=== PATIENT | male | born 1935 | race Caucasian/White ===

== ENCOUNTER 2020-11-01 11:47 | Emergency (ER) | payer OTHER, MEDICARE ==
[~2020-11-01] VITALS: Ht 177.8 cm; Wt 100.0 kg
--- NOTE | 2020-11-01 12:45 | NUR ---
Pt ambulated in room, SpO2 while on room air 90-92%. At rest 93% on room air. Cardiac and Spo2 monitoring in place. PA notified.
[2020-11-01 13:18] LABS: BASOPHILS % (AUTO) 0.5 % (0-1); EOSINOPHILS % (AUTO) 0.5 % (0-6); HEMATOCRIT 39.6 % (42.0-52.0); HEMOGLOBIN 13.1 g/dl (14.0-17.9); LYMPHOCYTES # (AUTO) 0.7 X10'3 (1.1-4.8); LYMPHOCYTES % (AUTO) 15.6 % (21-51); MEAN CORPUSCULAR HEMOGLOBIN 30.1 PG (27.0-31.0); MEAN PLATELET VOLUME 8.8 FL (7.4-10.4); MONOCYTES # (AUTO) 0.4 X10'3 (0-0.9); NEUTROPHILS # (AUTO) 3.1 X10'3 (1.8-7.7); NEUTROPHILS % (AUTO) 73.4 % (42-75); PLATELET COUNT 161 X10'3 (140-440); RED BLOOD COUNT 4.35 X10'6 (4.70-6.10); RED CELL DISTRIBUTION WIDTH 13.4 % (11.5-14.5); WHITE BLOOD COUNT 4.2 X10'3 (4.5-11.0)
[2020-11-01 13:32] LABS: ALANINE AMINOTRANSFERASE 27 U/L (12-78); ALBUMIN/GLOBULIN RATIO 0.7 (1.1-1.5); ALKALINE PHOSPHATASE 58 IU/L (46-116); ANION GAP 8 (8-16); ASPARTATE AMINO TRANSFERASE 28 U/L (10-37); BILIRUBIN,TOTAL 0.3 MG/DL (0.1-1.0); BLOOD UREA NITROGEN 18 MG/DL (7-18); BUN/CREATININE RATIO 13.1 (5.4-32.0); CHLORIDE 101 MMOL/L (99-107); CREATININE 1.37 MG/DL (0.60-1.10); GLUCOSE 110 MG/DL (70-104); POTASSIUM 4.4 MMOL/L (3.5-5.1); SODIUM 136 MMOL/L (135-145); TOTAL CARBON DIOXIDE 26.7 MMOL/L (24-32); TOTAL PROTEIN 7.4 G/DL (6.4-8.2); eGFR 50 ML/MIN
[2020-11-01] MEDS ORDERED: iohexol 350MG/ML 100ml bottle IV ONE (14:16)
--- NOTE | 2020-11-01 14:34 | NUR ---
To CT with tech
--- NOTE | 2020-11-01 17:46 | NUR ---
Call to Peggy at this time to provide update. All questions and concerns addressed.
--- NOTE | 2020-11-01 18:02 | NUR ---
Pt with no respiratory distress, he has been counseled by PA on monoclonal antibody infusion and has consented, we are awaiting approval from pharmacy.
[2020-11-01] MEDS ORDERED: BAMLANIVIMAB INJECTION 700 MG in normal saline 250ml IV soln 180 ML IV ONE (18:05)
[2020-11-01] MEDS ORDERED: dexamethasone 4mg/ml inj IV ONE (18:05)
[2020-11-01] MEDS ORDERED: dexamethasone 4mg/ml inj IV SCH (18:05)
[2020-11-01 19:19] VITALS: BP 150/69
== END 2020-11-01 19:21 | disposition home or self-care (01) ==
LOC: ER 11:47
DX: U07.1 COVID-19 (principal); I10 Essential (primary) hypertension; J45.909 Unspecified asthma, uncomplicated; Z88.0 Allergy status to penicillin
CPT/HCPCS: 36415; 71045; 71275; 80053; 83880; 84484; 85025; 85610; 96374; 99285; J1100; Q9967; 93005

== ENCOUNTER 2020-11-27 11:59 | Emergency (ER) | payer OTHER, MEDICARE ==
[~2020-11-27] VITALS: Ht 162.6 cm; Wt 92.7 kg
[~2020-11-27 11:59] MED LIST: AMLO10TA PO; DEXA4TAB67 PO; FLO0.4C PO; GABA-530 PO; HCTZ25T PO; LORA-268 PO; LOSA50TA64 PO; OMEP40CA13 PO; RIVA10TA PO
[2020-11-27 12:03] VITALS: BP 136/72
[2020-11-27] MEDS ORDERED: tranexamic acid 100mg/ml inj. TP ONE (12:15)
[2020-11-27] MEDS ORDERED: LIDOcaine 4% (40 mg/ml) topical solution 50ml TP ONE (12:15)
[2020-11-27] MEDS ORDERED: CLIN-97 PO (13:20)
== END 2020-11-27 13:51 | disposition home or self-care (01) ==
LOC: ER 12:00
DX: R04.0 Epistaxis (principal); R05 Cough; I10 Essential (primary) hypertension; J45.909 Unspecified asthma, uncomplicated; Z98.890 Other specified postprocedural states; Z88.0 Allergy status to penicillin; Z79.899 Other long term (current) drug therapy
CPT/HCPCS: 30901; 99284

== ENCOUNTER 2021-01-01 19:33 | Emergency (ER) | payer OTHER, MEDICARE ==
[~2021-01-01] VITALS: Ht 162.6 cm; Wt 90.9 kg
[~2021-01-01 19:33] MED LIST changes: +CLIN-97 PO
[2021-01-01 19:51] VITALS: BP 145/93
== END 2021-01-01 21:32 | disposition home or self-care (01) ==
LOC: ER 19:34
DX: R04.0 Epistaxis (principal); I10 Essential (primary) hypertension; J45.909 Unspecified asthma, uncomplicated; Z98.890 Other specified postprocedural states; Z88.0 Allergy status to penicillin; Z79.899 Other long term (current) drug therapy
CPT/HCPCS: 30901; 99284

== ENCOUNTER 2021-01-07 12:23 | Emergency (ER) | payer OTHER, MEDICARE ==
[~2021-01-07] VITALS: Ht 160 cm; Wt 100.5 kg
[~2021-01-07 12:23] MED LIST changes: -HCTZ25T PO; +HYDR25TA5 PO
[2021-01-07 13:07] VITALS: BP 148/82
== END 2021-01-07 13:08 | disposition home or self-care (01) ==
LOC: ER 12:24
DX: R04.0 Epistaxis (principal); I10 Essential (primary) hypertension; J45.909 Unspecified asthma, uncomplicated; Z98.890 Other specified postprocedural states; Z79.2 Long term (current) use of antibiotics; Z79.899 Other long term (current) drug therapy
CPT/HCPCS: 99281; 99284

== ENCOUNTER 2021-04-13 08:50 | Emergency (ER) | payer OTHER, MEDICARE ==
[~2021-04-13] VITALS: Ht 162.6 cm; Wt 102.0 kg
[2021-04-13 09:23] LABS: BASOPHILS % (AUTO) 0.4 % (0-1); EOSINOPHILS # (AUTO) 0.2 X10'3 (0-0.9); EOSINOPHILS % (AUTO) 1.8 % (0-6); HEMATOCRIT 39.8 % (42.0-52.0); HEMOGLOBIN 13.2 g/dl (14.0-17.9); LYMPHOCYTES # (AUTO) 1.2 X10'3 (1.1-4.8); LYMPHOCYTES % (AUTO) 13.6 % (21-51); MEAN CORPUSCULAR HEMOGLOBIN 29.4 PG (27.0-31.0); MEAN CORPUSCULAR HGB CONC 33.2 g/dL (33.0-36.5); MEAN CORPUSCULAR VOLUME 88.5 FL (78-98); MEAN PLATELET VOLUME 8.5 FL (7.4-10.4); MONOCYTES # (AUTO) 0.6 X10'3 (0-0.9); MONOCYTES % (AUTO) 6.9 % (2-12); NEUTROPHILS # (AUTO) 6.9 X10'3 (1.8-7.7); NEUTROPHILS % (AUTO) 77.3 % (42-75); PLATELET COUNT 175 X10'3 (140-440); RED CELL DISTRIBUTION WIDTH 13.8 % (11.5-14.5); WHITE BLOOD COUNT 8.9 X10'3 (4.5-11.0)
[2021-04-13 09:46] LABS: ALANINE AMINOTRANSFERASE 19 U/L (12-78); ALBUMIN 3.5 G/DL (3.4-5.0); ALBUMIN/GLOBULIN RATIO 0.9 (1.1-1.5); ALKALINE PHOSPHATASE 71 IU/L (46-116); ANION GAP 9 (8-16); ASPARTATE AMINO TRANSFERASE 21 U/L (10-37); BILIRUBIN,TOTAL 0.4 MG/DL (0.1-1.0); BLOOD UREA NITROGEN 29 MG/DL (7-18); BUN/CREATININE RATIO 20.7 (5.4-32.0); CALCIUM 8.7 MG/DL (8.5-10.1); CHLORIDE 103 MMOL/L (99-107); GLUCOSE 122 MG/DL (70-104); POTASSIUM 4.2 MMOL/L (3.5-5.1); SODIUM 140 MMOL/L (135-145); TOTAL CARBON DIOXIDE 28.1 MMOL/L (24-32); TOTAL PROTEIN 7.2 G/DL (6.4-8.2); eGFR 48 ML/MIN
[2021-04-13 10:54] LABS: CLARITY,URINE CLEAR (Clear); COLOR,URINE STRAW (Yellow); GLUCOSE, URINE NEGATIVE (Neg); KETONES,URINE NEGATIVE (Neg); LEUKOCYTE ESTERASE ,URINE NEGATIVE (Neg); NITRITES, URINE NEGATIVE (Neg); OCCULT BLOOD,URINE NEGATIVE (Neg); PH,URINE 5.5 (4.8-8.0); PROTEIN,URINE 100 mg/dl (Neg); UROBILINOGEN,URINE 0.2 E.U/dL (0.2-1.0)
[2021-04-13 10:55] LABS: UA COLLECTION TYPE CLN CATCH MIDSTREAM
[2021-04-13] MEDS ORDERED: AZIT-63 PO (10:59)
[2021-04-13 11:05] LABS: BACTERIA,URINE FEW /HPF (Neg); MUCUS STRANDS FEW /LPF (Neg); RBC,URINE 0-2 /HPF (0-2); SQUAMOUS EPITHELIAL CELL,UR FEW /LPF (FEW); WBC,URINE 0-4 /HPF (0-4)
[2021-04-13 11:17] VITALS: BP 142/75
== END 2021-04-13 11:20 | disposition home or self-care (01) ==
LOC: ER 08:51
DX: R05 Cough (principal); R50.9 Fever, unspecified; R06.02 Shortness of breath; I49.3 Ventricular premature depolarization; I10 Essential (primary) hypertension; J45.909 Unspecified asthma, uncomplicated; Z79.2 Long term (current) use of antibiotics; Z79.899 Other long term (current) drug therapy
CPT/HCPCS: 36415; 71045; 80053; 81001; 83880; 84484; 85025; 93005; 99285

== ENCOUNTER 2022-04-27 05:32 | Inpatient (IN) | payer OTHER ==
[2022-04-20 16:45] LABS: BASOPHILS % (AUTO) 0.5 % (0-1); EOSINOPHILS # (AUTO) 0.2 X10'3 (0-0.9); EOSINOPHILS % (AUTO) 2.7 % (0-6); LYMPHOCYTES # (AUTO) 1.5 X10'3 (1.1-4.8); LYMPHOCYTES % (AUTO) 21.7 % (21-51); MEAN CORPUSCULAR HEMOGLOBIN 29.3 PG (27.0-31.0); MEAN CORPUSCULAR HGB CONC 32.6 g/dL (33.0-36.5); MEAN CORPUSCULAR VOLUME 89.9 FL (78-98); MEAN PLATELET VOLUME 8.9 FL (7.4-10.4); MONOCYTES # (AUTO) 0.5 X10'3 (0-0.9); NEUTROPHILS # (AUTO) 4.6 X10'3 (1.8-7.7); NEUTROPHILS % (AUTO) 68.1 % (42-75); PRE OP HEMATOCRIT 40.9 % (42.0-52.0); PRE OP HEMOGLOBIN 13.3 g/dL (14.0-17.9); PRE OP PLATELET COUNT 187 X10'3 (140-440); RED BLOOD COUNT 4.55 X10'6 (4.70-6.10); RED CELL DISTRIBUTION WIDTH 14.6 % (11.5-14.5)
[2022-04-20 16:55] LABS: PRE OP PROTIME 10.3 SECONDS (9.0-12.0)
[2022-04-20 17:00] LABS: ALBUMIN 3.4 G/DL (3.4-5.0); ALBUMIN/GLOBULIN RATIO 0.9 (1.1-1.5); ALKALINE PHOSPHATASE 63 IU/L (46-116); BLOOD UREA NITROGEN 25 MG/DL (7-18); BUN/CREATININE RATIO 17.9 (5.4-32.0); CALCIUM 8.2 MG/DL (8.5-10.1); CHLORIDE 108 MMOL/L (99-107); PRE OP ALT 16 U/L (30-65); PRE OP ANION GAP 5 (8-16); PRE OP AST 16 U/L (10-37); PRE OP BILIRUB, TOTAL 0.2 MG/DL (0.0-1.0); PRE OP GLUCOSE 132 MG/DL (70-104); PRE OP POTASSIUM 4.3 MMOL/L (3.4-5.1); PRE OP SODIUM 141 MMOL/L (135-145); TOTAL CARBON DIOXIDE 27.8 MMOL/L (24-32); eGFR 48 ML/MIN
[2022-04-20 18:03] LABS: HEMOGLOBIN A1C 6.5 % (4.5-6.2)
[~2022-04-27] VITALS: Ht 160 cm; Wt 106.5 kg
[2022-04-27] VITALS (21 sets, daily range): BP systolic 92–130; BP diastolic 45–70
[~2022-04-27 05:32] MED LIST changes: +ALBU8.5H17 IH; +BUDE10.2 INH; -CLIN-97 PO; -DEXA4TAB67 PO; +FURO-150 PO; +IPRA4AER IH; -LORA-268 PO; +LORA10TA7 PO; +MONT-40 PO; -OMEP40CA13 PO; +OMEP40CA21 PO; -RIVA10TA PO; +acetaminophen 325mg tablet PO ONE; +ceFAZolin inj. 2,000 MG in dextrose 5%-water 100 ML IV ONE; +celeCOXIB 100mg capsule PO ONE; +famotidine 20mg tablet PO ONE; +gabapentin 300mg capsule PO ONE; +metoclopramide 5 mg/ml inj IV ONE; +oxyCODONE SR 10mg (sust. release) tab -2 tabs (20mg) PO ONE; +ringers solution, lacted 1,000 ML IV SCH; +tranexamic acid inj. 1,000 MG in 0.7% saline 100 ML PMX IV ONE; +vancomycin 1,500 MG in NS 300ml IV soln IV ONE
[2022-04-27] MEDS ORDERED: albuterol 2.5 MG/3 ML nebule NEB ONE (06:20)
--- NOTE | 2022-04-27 06:30 | NUR ---
REPIRATORY CALLED AND TREATMENT GIVEN TO PATIENT. O2 SATS IMPROVED FROM 88% TO 93%. PT DID NOT USE HIS INHALERS THIS MORNING Addendum: 04/27/22 at 0731 by Brooke Saldana RN Amended: Links added.
[2022-04-27] MEDS ORDERED: magnesium hydroxide 30ml (MOM) UD suspension PO PRN (06:50)
[2022-04-27] MEDS ORDERED: pantoprazole 40mg Tablet.DR PO PRN (06:50)
[2022-04-27] MEDS ORDERED: acetaminophen 325mg tablet PO PRN (06:50)
[2022-04-27] MEDS ORDERED: HYDROmorphone inj. 0.5 MG/0.5 ML DISP.SYRIN IV PRN (06:50)
[2022-04-27] MEDS ORDERED: bisacodyl 10mg suppository rectal RC PRN (06:50)
[2022-04-27] MEDS ORDERED: oxyCODONE/APAP 10/325mg tablet PO PRN ×2 (06:50)
[2022-04-27] MEDS ORDERED: HYDROmorphone 1 mg/ml syringe IV PRN (06:50)
[2022-04-27] MEDS ORDERED: albuterol 2.5 MG/3 ML nebule NEB PRN (06:50)
[2022-04-27] MEDS ORDERED: ondansetron/PF 4mg/2ml inj IV PRN ×2 (06:50→08:15)
[2022-04-27] MEDS ORDERED: naloxone 0.4 mg/ml inj IV PRN (06:50)
[2022-04-27] MEDS ORDERED: non-formulary drug (Ipratropium/Albuterol Sulfate (Combivent Respimat Inhal Spray) 2 PUFFS IH PRN (06:50)
[2022-04-27] MEDS ORDERED: diphenhydrAMINE 25mg capsule PO PRN ×2 (06:50)
[2022-04-27] MEDS ORDERED: cloNIDine hcl/PF 100mcg/ml inj ONE ×2 (06:59→08:01)
[2022-04-27] MEDS ORDERED: epiNEPHrine 1 mg/ml inj ONE (06:59)
[2022-04-27] MEDS ORDERED: ketorolac trometh. 30mg/ml inj. ONE (06:59)
[2022-04-27] MEDS ORDERED: vancomycin 1,000mg inj ONE (06:59)
[2022-04-27] MEDS ORDERED: ROPIVAcaine 0.5% (5mg/ml) 30ml vial ONE (07:00)
--- NOTE | 2022-04-27 07:00 | NUR ---
BILATERAL PEDAL PULSES PALPABLE, SENSATION INTACT, BOTH LEGS ARE PINK, WARM AND DRY. PT STATED THE WEBSITE VIDEO WOULD NOT WORK ON THEIR COMPUTER BUT THEY DID LISTEN TO THE AUDIO PORTION OF THE EDUCATION. PT DID NOT USE THE OINTMENT IN HIS NOSE BECAUSE HE DID NOT RECEIVE IT FROM HIS PHYSICIAN. PT USED THE HIBACLENS SOAP FOR SHOWERING FOR 5 DAYS WITH LAST SHOWER THIS MORNING.
[2022-04-27] MEDS: losartan 50mg tablet PO SCH (08:00)
[2022-04-27] MEDS: HYDROchlorothiazide 25mg tablet PO SCH (08:00)
[2022-04-27] MEDS: multivitamins, therapeutics tablet PO SCH (08:00)
[2022-04-27] MEDS: loratadine 10mg tablet PO SCH (08:00)
[2022-04-27] MEDS ORDERED: gabapentin 100mg capsule PO PRN (08:00)
[2022-04-27] MEDS: albuterol 2.5 MG/3 ML nebule NEB SCH ×3 (08:00→20:07)
[2022-04-27] MEDS: tamsulosin 0.4mg capsule PO SCH (08:00)
--- NOTE | 2022-04-27 08:02 | NUR ---
PT MEDICATED WITH OXYCODONE NOW, SEEN BY ALL PARTIES AND CONSENTS SIGNED
[2022-04-27] MEDS ORDERED: BUPIVAcaine/PF 7.5mg/ml (0.75%) 10ml vial ONE (08:03)
[2022-04-27] MEDS ORDERED: fentaNYL/PF 50MCG/1 ML 2ML syringe ONE (08:05)
[2022-04-27] MEDS ORDERED: midazolam 1 mg/ML 2ml injection ONE (08:05)
[2022-04-27] MEDS ORDERED: meperidine/PF 25mg/ml syringe IV PRN ×3 (08:15)
[2022-04-27] MEDS ORDERED: morphine 4 MG/ML inj SYRINge IV PRN (08:15)
[2022-04-27] MEDS ORDERED: ROPIVAcaine 0.2%/PF PUMP/bolus 545 ML ADDCANAL SCH ×2 (08:15→11:54)
[2022-04-27] MEDS ORDERED: ROPIVAcaine 0.2% (10 MG/5 ML) BOLUS INJECTION ADDCANAL PRN (08:15)
[2022-04-27] MEDS ORDERED: proCHLORperazine 10 MG/2 ml inj IV PRN (08:15)
[2022-04-27] MEDS ORDERED: morphine 2 MG/ML inj. syringe IV PRN (08:15)
[2022-04-27] MEDS ORDERED: ringers solution, lacted 1,000 ML IV SCH (08:15)
[2022-04-27] MEDS: aspirin 325mg tablet PO SCH (08:30)
--- NOTE | 2022-04-27 10:12 | NUR ---
Received from OR via [facility] IN STABLE CONDITION , accompanied by Anesthesiologist and SECURITY ORDERLY report given by SECURITY ORDERLY AND Anesthesiolgist. DERMATOME LEVEL L1. Addendum: 04/27/22 at 1050 by Meghan Singh RN Amended: Links added.
--- NOTE | 2022-04-27 11:10 | NUR ---
DERMATOME LEVEL L5 Addendum: 04/27/22 at 1111 by Meghan Singh RN Amended: Links added.
--- NOTE | 2022-04-27 11:32 | NUR ---
PATIENT DISCHARGED FROM PACU IN STABLE CONDITION AFTER REPORT GIVEN TO RN TAKING OVER PATIENTS CARE. PATIENT TRANSFERRED TO ROOM [facility] VIA BED WITH RN. Addendum: 04/27/22 at 1133 by Meghan Singh RN Amended: Links added.
[2022-04-27] MEDS ORDERED: tranexamic acid inj. 1,000 MG in normal saline 100ml IV soln 90 ML IV ONE (13:00)
[2022-04-27] MEDS: cefazolin/dext.iso 2gm/100ml 100 ML IV SCH (16:29)
[2022-04-27] MEDS: potassium cl 20mEq in 1/2 NS 1,000 ML IV SCH (17:50)
--- NOTE | 2022-04-27 18:30 | NUR ---
Problems reprioritized. Patient report given, questions answered & plan of care reviewed with CAITLYN Costello.
--- NOTE | 2022-04-27 18:30 | NUR ---
Patient in room ORTHO 4014. I have received report from CAITLYN Concepcion and had the opportunity to ask questions and assume patient care.
[2022-04-27] MEDS: budesonide 0.5mg/2ml UD nebule IH SCH (20:06)
[2022-04-27] MEDS: ascorbic acid 500mg tablet PO SCH (20:26)
[2022-04-27] MEDS: sennosides 8.6mg tablet PO SCH (20:31)
[2022-04-27] MEDS ORDERED: furosemide 20MG tablet PO SCH (21:00)
[2022-04-27] MEDS ORDERED: amLODIPine 5mg tablet PO SCH (21:00)
[2022-04-27] MEDS ORDERED: montelukast 10mg tablet PO SCH (21:00)
[2022-04-28] VITALS: BP 118/67
[2022-04-28] MEDS: cefazolin/dext.iso 2gm/100ml 100 ML IV SCH (00:10)
[2022-04-28] MEDS: potassium cl 20mEq in 1/2 NS 1,000 ML IV SCH ×2 (00:13→06:50)
[2022-04-28 02:00] VITALS: BP 118/58
[2022-04-28] MEDS: albuterol 2.5 MG/3 ML nebule NEB SCH ×2 (02:15→07:29)
[2022-04-28 04:00] VITALS: BP 115/65
[2022-04-28 06:00] VITALS: BP 116/47
--- NOTE | 2022-04-28 06:10 | NUR ---
Problems reprioritized. Patient report given, questions answered & plan of care reviewed with CAITLYN Concepcion.
--- NOTE | 2022-04-28 06:39 | NUR ---
Patient in room ORTHO 4014. I have received report from CAITLYN Costello and had the opportunity to ask questions and assume patient care.
[2022-04-28] MEDS: budesonide 0.5mg/2ml UD nebule IH SCH (07:29)
[2022-04-28 07:42] LABS: BASOPHILS % (AUTO) 0.3 % (0-1); EOSINOPHILS % (AUTO) 0.1 % (0-6); HEMATOCRIT 35.2 % (42.0-52.0); HEMOGLOBIN 11.7 g/dl (14.0-17.9); LYMPHOCYTES # (AUTO) 0.5 X10'3 (1.1-4.8); LYMPHOCYTES % (AUTO) 4.7 % (21-51); MEAN CORPUSCULAR HEMOGLOBIN 29.6 PG (27.0-31.0); MEAN CORPUSCULAR HGB CONC 33.1 g/dL (33.0-36.5); MEAN CORPUSCULAR VOLUME 89.7 FL (78-98); MEAN PLATELET VOLUME 8.9 FL (7.4-10.4); MONOCYTES # (AUTO) 0.5 X10'3 (0-0.9); MONOCYTES % (AUTO) 5.1 % (2-12); NEUTROPHILS # (AUTO) 9.2 X10'3 (1.8-7.7); NEUTROPHILS % (AUTO) 89.8 % (42-75); PLATELET COUNT 164 X10'3 (140-440); RED BLOOD COUNT 3.93 X10'6 (4.70-6.10); RED CELL DISTRIBUTION WIDTH 14.2 % (11.5-14.5); WHITE BLOOD COUNT 10.2 X10'3 (4.5-11.0)
[2022-04-28 07:49] LABS: ANION GAP 6 (8-16); CHLORIDE 105 MMOL/L (99-107); POTASSIUM 4.6 MMOL/L (3.5-5.1); SODIUM 138 MMOL/L (135-145); TOTAL CARBON DIOXIDE 26.8 MMOL/L (24-32)
[2022-04-28] MEDS: tamsulosin 0.4mg capsule PO SCH (09:18)
[2022-04-28] MEDS: sennosides 8.6mg tablet PO SCH (09:19)
[2022-04-28] MEDS: ascorbic acid 500mg tablet PO SCH (09:19)
[2022-04-28] MEDS: multivitamins, therapeutics tablet PO SCH (09:19)
[2022-04-28] MEDS: losartan 50mg tablet PO SCH (09:19)
[2022-04-28] MEDS: HYDROchlorothiazide 25mg tablet PO SCH (09:19)
[2022-04-28] MEDS: loratadine 10mg tablet PO SCH (09:19)
[2022-04-28] MEDS: aspirin 325mg tablet PO SCH (09:20)
[2022-04-28 10:00] VITALS: BP 131/59
--- NOTE | 2022-04-28 10:49 | NUR ---
Joint surgery consult: Pt s/p R knee surgery this admit per EMR. Pt/SO seen by HOMERO for written/verbal high protein diet ed w/ RD contact information provided. HOMERO encouraged pt/SO to contact dietitian's office if further questions/concerns. Addendum: 04/28/22 at [address] Amended: Links added.
--- NOTE | 2022-04-28 12:37 | NUR ---
Patient was discharged at 1145 with instructions and verbalizing understanding of instructions, in wheelchair accompanied by nursing staff and family going home via private vehicle. All lines and tubes have been removed including IV with cannula intact. Education has been provided at bedside and all questions have been answered. Patient already has a follow up appointment set up with Dr. Coles. Patient is stable and appropriate for discharge.
[2022-04-28] MEDS ORDERED: celeCOXIB 100mg capsule PO SCH (20:00)
== END 2022-04-28 11:45 | disposition home or self-care (01) | DRG 470 ==
LOC: PAS 05:32 → PAS IN 05:33 → ORTHO 4S 11:52
PROVIDERS: ADMIT Orthopaedic Surgery; ATTEND Orthopaedic Surgery
PROC: 0SRC0J9 Replacement of Right Knee Joint with Synthetic Substitute, Cemented, Open Approach (ICD-10-PCS; principal; 2022-04-27 08:13)
DX: M17.11 Unilateral primary osteoarthritis, right knee (principal); Z79.51 Long term (current) use of inhaled steroids; Z79.899 Other long term (current) drug therapy
CPT/HCPCS: 36415; 73560; 80051; 80053; 82948; 83036; 85025; 85610; 85730; 86885; 86900; 86901; 87081; 94640; 94760; 97116; 97161; 97530; A4215; A4615; A7000; C1713; C1776; G0378; J0171; J0690; J0735; J1885; J2250; J2765; J2795; J3010; J3370; J3480; J3490; J7040; J7060; J7120

== ENCOUNTER 2022-08-17 05:33 | Day surgery (SDC) | payer OTHER ==
[2022-08-11 16:27] LABS: BASOPHILS # (AUTO) 0.1 X10'3 (0-0.2); BASOPHILS % (AUTO) 0.8 % (0-1); EOSINOPHILS # (AUTO) 0.2 X10'3 (0-0.9); EOSINOPHILS % (AUTO) 2.3 % (0-6); LYMPHOCYTES # (AUTO) 1.6 X10'3 (1.1-4.8); LYMPHOCYTES % (AUTO) 24.4 % (21-51); MEAN CORPUSCULAR HEMOGLOBIN 29.4 PG (27.0-31.0); MEAN CORPUSCULAR HGB CONC 32.7 g/dL (33.0-36.5); MEAN CORPUSCULAR VOLUME 89.8 FL (78-98); MEAN PLATELET VOLUME 8.2 FL (7.4-10.4); MONOCYTES # (AUTO) 0.6 X10'3 (0-0.9); MONOCYTES % (AUTO) 8.4 % (2-12); NEUTROPHILS # (AUTO) 4.3 X10'3 (1.8-7.7); NEUTROPHILS % (AUTO) 64.1 % (42-75); PRE OP HEMATOCRIT 41.4 % (42.0-52.0); PRE OP HEMOGLOBIN 13.6 g/dL (14.0-17.9); PRE OP PLATELET COUNT 230 X10'3 (140-440); RED BLOOD COUNT 4.62 X10'6 (4.70-6.10)
[2022-08-11 16:40] LABS: ALBUMIN 3.5 G/DL (3.4-5.0); ALBUMIN/GLOBULIN RATIO 0.9 (1.1-1.5); ALKALINE PHOSPHATASE 67 IU/L (46-116); BLOOD UREA NITROGEN 30 MG/DL (7-18); BUN/CREATININE RATIO 19.9 (5.4-32.0); CALCIUM 8.9 MG/DL (8.5-10.1); CHLORIDE 104 MMOL/L (99-107); CREATININE 1.51 MG/DL (0.60-1.10); PRE OP ALT 18 U/L (30-65); PRE OP ANION GAP 7 (8-16); PRE OP AST 18 U/L (10-37); PRE OP BILIRUB, TOTAL 0.1 MG/DL (0.0-1.0); PRE OP GLUCOSE 96 MG/DL (70-104); PRE OP POTASSIUM 4.4 MMOL/L (3.4-5.1); PRE OP SODIUM 142 MMOL/L (135-145); TOTAL CARBON DIOXIDE 31.1 MMOL/L (24-32); TOTAL PROTEIN 7.6 G/DL (6.4-8.2); eGFR 44 ML/MIN
[2022-08-17] VITALS (10 sets, daily range): BP systolic 116–146; BP diastolic 50–76
[~2022-08-17] VITALS: Ht 160 cm; Wt 105.7 kg
[~2022-08-17 05:33] MED LIST changes: -ALBU8.5H17 IH; -FURO-150 PO; +TRAZ-251 PO; -acetaminophen 325mg tablet PO ONE; -celeCOXIB 100mg capsule PO ONE; -famotidine 20mg tablet PO ONE; -gabapentin 300mg capsule PO ONE; -metoclopramide 5 mg/ml inj IV ONE; -oxyCODONE SR 10mg (sust. release) tab -2 tabs (20mg) PO ONE; -tranexamic acid inj. 1,000 MG in 0.7% saline 100 ML PMX IV ONE; -vancomycin 1,500 MG in NS 300ml IV soln IV ONE
[2022-08-17] MEDS: famotidine 20mg tablet PO ONE ×2 (05:53→06:02)
[2022-08-17] MEDS ORDERED: BUPIVAcaine/PF 2.5 mg/ml (0.25%) 30ml vial ONE (06:42)
[2022-08-17] MEDS ORDERED: LIDOcaine 1% 30ml preserv. free vial ONE (06:42)
[2022-08-17] MEDS ORDERED: bacitracin 15gm ointment TP ONE (06:45)
[2022-08-17] MEDS ORDERED: morphine 4 MG/ML inj SYRINge IV PRN (07:15)
[2022-08-17] MEDS ORDERED: ringers solution, lacted 1,000 ML IV SCH (07:15)
[2022-08-17] MEDS ORDERED: ondansetron/PF 4mg/2ml inj IV PRN (07:15)
[2022-08-17] MEDS ORDERED: labetalol 20mg/4ml (5mg/ml) syringe IV PRN (07:15)
[2022-08-17] MEDS ORDERED: hydrALAZINE 20mg/ml inj. IV PRN (07:15)
[2022-08-17] MEDS ORDERED: morphine 2 MG/ML inj. syringe IV PRN (07:15)
[2022-08-17] MEDS ORDERED: fentaNYL/PF 50MCG/1 ML 2ML syringe IV PRN ×2 (07:15)
[2022-08-17] MEDS ORDERED: fentaNYL/PF 50MCG/1 ML 2ML syringe ONE (07:21)
[2022-08-17] MEDS ORDERED: midazolam 1 mg/ML 2ml injection ONE (07:21)
[2022-08-17] MEDS ORDERED: LIDOcaine 2% (20mg/ml) 5ml vial ONE (07:23)
[2022-08-17] MEDS ORDERED: propofol inj 20 ML IV ONE (07:23)
[2022-08-17] MEDS ORDERED: rocuronium 10mg/ml inj IV ONE (07:23)
[2022-08-17] MEDS ORDERED: ondansetron/PF 4mg/2ml inj ONE (07:23)
[2022-08-17] MEDS ORDERED: dexamethasone sod phosphate 10mg/ml inj ONE (07:28)
[2022-08-17] MEDS ORDERED: sevoflurane 250ml liquid IH ONE (07:28)
[2022-08-17] MEDS ORDERED: neostigmine methylsulfate 1 MG/ML 10ml vial ONE (07:49)
[2022-08-17] MEDS ORDERED: glycopyrrolate 0.2mg/ml inj ONE (07:49)
[2022-08-17] MEDS ORDERED: ePHEDrine 50MG/ML INJ. ONE (08:00)
[2022-08-17] MEDS ORDERED: sugammadex 200mg/2ml injection IV ONE (08:36)
--- NOTE | 2022-08-17 08:43 | NUR ---
Received from OR via [facility], accompanied by Anesthesiologist DR SEBASTIAN and report given by Anesthesiolgist. PT PRESENTS WITH PIV 20G RIGHT HAND, ABD DRESSING MAURISIO LANCASTERS. Addendum: 08/17/22 at 0853 by Joyce Villegas RN, RN Amended: Links added.
[2022-08-17] MEDS ORDERED: metoprolol tartrate 1mg/ml inj IV ONE (08:57)
[2022-08-17] MEDS ORDERED: flumazenil 0.1 mg/ml inj. IV ONE (08:57)
[2022-08-17] MEDS ORDERED: naloxone 0.4 mg/ml inj ONE (08:57)
[2022-08-17] MEDS ORDERED: HYDROcodone/acetaminophen 5mg/325mg tablet PO PRN (09:05)
--- NOTE | 2022-08-17 10:03 | NUR ---
ALL DISCHARGE CRITERIA HAS BEEN MET. VSS, PAIN AT A TOLERABLE LEVEL, VOIDING AND ABLE TO SAFELY AMBULATE AND TRANSFER SELF. IV TAKEN OUT WITHOUT ANY COMPLICATIONS. ALL DISCHARGE INSTRUCTIONS COVERED WITH PATIENT AND ALL QUESTIONS ANSWERED. PATIENT TAKEN OUT VIA WHEELCHAIR TO PERSONAL VEHICLE WHERE FAMILY/FRIEND DROVE PATIENT HOME. Addendum: 08/17/22 at 1019 by Joyce Villegas RN, RN Amended: Links added.
== END 2022-08-17 10:03 | disposition home or self-care (01) ==
LOC: PAS 05:33
PROVIDERS: ATTEND Surgery
DX: K42.9 Umbilical hernia without obstruction or gangrene (principal); Z79.899 Other long term (current) drug therapy; Z98.890 Other specified postprocedural states; Z98.49 Cataract extraction status, unspecified eye; G47.30 Sleep apnea, unspecified; Z96.651 Presence of right artificial knee joint; Z20.822 Contact with and (suspected) exposure to COVID-19
CPT/HCPCS: 36415; 49585; 80053; 82948; 85025; 87811; C1781; J0690; J2250; J2310; J2405; J2704; J3010; J3490; J7030; J7060; J7120; Z7506; Z7508; Z7512; A4618; A7000; J1100; J2710

== ENCOUNTER 2024-10-27 08:49 | Day surgery (SDC) | payer OTHER, MEDICARE ==
[2024-10-23 10:28] LABS: BASOPHILS # (AUTO) 0.1 X10'3 (0-0.2); EOSINOPHILS # (AUTO) 0.1 X10'3 (0-0.9); EOSINOPHILS % (AUTO) 2.1 % (0-6); LYMPHOCYTES # (AUTO) 1.3 X10'3 (1.1-4.8); LYMPHOCYTES % (AUTO) 22.6 % (21-51); MEAN CORPUSCULAR HEMOGLOBIN 30.9 PG (27.0-31.0); MEAN CORPUSCULAR HGB CONC 33.4 g/dL (33.0-36.5); MEAN CORPUSCULAR VOLUME 92.4 FL (78-98); MEAN PLATELET VOLUME 8.6 FL (7.4-10.4); MONOCYTES # (AUTO) 0.4 X10'3 (0-0.9); MONOCYTES % (AUTO) 6.5 % (2-12); NEUTROPHILS % (AUTO) 67.8 % (42-75); PRE OP HEMATOCRIT 39.2 % (42.0-52.0); PRE OP HEMOGLOBIN 13.1 g/dL (14.0-17.9); PRE OP PLATELET COUNT 188 X10'3 (140-440); PRE OP WHITE BLOOD COUNT 5.9 10'3 (4.8-10.8); RED BLOOD COUNT 4.24 X10'6 (4.70-6.10)
[2024-10-23 10:46] LABS: ALBUMIN 3.2 G/DL (3.4-5.0); ALBUMIN/GLOBULIN RATIO 0.8 (1.1-1.5); ALKALINE PHOSPHATASE 73 IU/L (46-116); BLOOD UREA NITROGEN 21 MG/DL (7-18); BUN/CREATININE RATIO 12.1 (10.0-20.0); CALCIUM 8.3 MG/DL (8.5-10.1); CHLORIDE 106 MMOL/L (99-107); CREATININE 1.73 MG/DL (0.60-1.10); PRE OP ALT 20 U/L (30-65); PRE OP ANION GAP 5 (8-16); PRE OP AST 20 U/L (10-37); PRE OP BILIRUB, TOTAL 0.3 MG/DL (0.0-1.0); PRE OP GLUCOSE 117 MG/DL (70-104); PRE OP POTASSIUM 4.6 MMOL/L (3.4-5.1); PRE OP SODIUM 142 MMOL/L (135-145); TOTAL CARBON DIOXIDE 30.8 MMOL/L (24-32); eGFR 38 ML/MIN
[~2024-10-27] VITALS: Ht 160 cm; Wt 100.1 kg
[2024-10-27] VITALS (11 sets, daily range): BP systolic 134–150; BP diastolic 56–70; PULSE 63–79; RESP 13–17; TEMP 98.3; O2SAT 92–97
[2024-10-27] MEDS: ceFAZolin 2gm in dextrose, iso 50 ML IV ONE (05:30)
[~2024-10-27 08:49] MED LIST changes: -BUDE10.2 INH; +FLUT1BLS9 INH; -HYDR25TA5 PO; +HYDR25TA90 PO; -IPRA4AER IH; -LORA10TA7 PO; +MELO-100 PO; +[UNRECOGNIZED DRUG - CODE] PO; -ceFAZolin inj. 2,000 MG in dextrose 5%-water 100 ML IV ONE; -ringers solution, lacted 1,000 ML IV SCH
[2024-10-27] MEDS: famotidine 20mg tablet PO ONE (10:10)
[2024-10-27] MEDS: ringers solution, lacted 1,000 ML IV SCH (10:11)
[2024-10-27] MEDS ORDERED: morphine 2 MG/ML inj. syringe IV PRN (10:30)
[2024-10-27] MEDS ORDERED: ondansetron/PF 4mg/2ml inj IV PRN (10:30)
[2024-10-27] MEDS ORDERED: ringers solution, lacted 1,000 ML IV SCH (10:30)
[2024-10-27] MEDS ORDERED: morphine 4 MG/ML inj SYRINge IV PRN (10:30)
[2024-10-27] MEDS ORDERED: meperidine/PF 25mg/ml syringe IV PRN ×3 (10:30)
[2024-10-27] MEDS ORDERED: proCHLORperazine 10 MG/2 ml inj IV PRN (10:30)
[2024-10-27] MEDS ORDERED: LIDOcaine 2% (20mg/ml) 5ml vial ONE ×2 (11:47)
[2024-10-27] MEDS ORDERED: BUPIVAcaine/PF 2.5mg/ml (0.25%) 10ml vial ONE (11:47)
[2024-10-27] MEDS ORDERED: midazolam 1 mg/ML 2ml injection ONE (11:58)
[2024-10-27] MEDS ORDERED: fentaNYL/PF 50MCG/1 ML 2ML syringe ONE (11:58)
[2024-10-27] MEDS ORDERED: propofol inj 20 ML IV ONE (12:00)
== END 2024-10-27 13:38 | disposition home or self-care (01) ==
LOC: PAS 08:49
PROVIDERS: ATTEND Orthopaedic Surgery Hand Surgery
DX: G56.01 Carpal tunnel syndrome, right upper limb (principal); K21.9 Gastro-esophageal reflux disease without esophagitis; M19.90 Unspecified osteoarthritis, unspecified site; G47.00 Insomnia, unspecified; Z79.899 Other long term (current) drug therapy; Z98.890 Other specified postprocedural states; Z87.891 Personal history of nicotine dependence; Z98.41 Cataract extraction status, right eye; Z96.651 Presence of right artificial knee joint
CPT/HCPCS: 36415; 64721; 80053; 82948; 85025; 93005; J0690; J2003; J2250; J2704; J3010; J3490; J7030; J7120; Z7506; Z7512; A4215; A4615; A6449